=== PATIENT | male | born 1965 | race Caucasian/White ===

== ENCOUNTER 2023-12-04 14:25 | Inpatient (IN) | payer OTHER ==
[~2023-12-04] VITALS: Ht 170.2 cm; Wt 84.9 kg
[2023-12-04] MEDS: IV NORMAL SALINE 1000 ML BAG IV ONE (14:38)
[2023-12-04 14:43] LABS: BASOPHILS % (AUTO) 0.3 % (0.0-2.0); EOSINOPHILS % (AUTO) 0.1 % (0.0-7.0); HEMATOCRIT 27.6 % (36.7-47.1); HEMOGLOBIN 9.4 g/dL (12.5-16.3); MEAN CORPUSCULAR HGB CONC 34 g/dL (32.5-36.3); MEAN CORPUSCULAR VOLUME 113.7 fL (73.0-96.2); MONOCYTES # (AUTO) 0.5 K/uL (0.1-1.30); MONOCYTES % (AUTO) 8.9 % (0.0-11.0); NEUTROPHILS % (AUTO) 72.7 % (38.5-71.5); PLATELET COUNT (AUTO) 157 K/uL (152-348); RED CELL DISTRIBUTION WIDTH 15.8 % (12.1-16.2); WHITE BLOOD COUNT (AUTO) 5.5 K/uL (3.6-10.2)
[2023-12-04 14:44] LABS: DIFFERENTIAL COMMENT 1; RED BLOOD CELL COUNT(AUTO) 2.42 MIL/uL (4.06-5.63)
[2023-12-04 14:58] LABS: ETHANOL < 3 MG/DL (0-10)
[2023-12-04 15:00] LABS: ALANINE AMINOTRANSFERASE 83 U/L (16-63); ALBUMIN 3.3 g/dL (3.4-5.0); ALKALINE PHOSPHATASE 79 U/L (50-136); ASPARTATE AMINOTRANSFERASE 94 U/L (15-37); BILIRUBIN,DIRECT 1.3 mg/dL (0.0-0.2); BILIRUBIN,TOTAL 2.5 mg/dL (0.2-1.0); CALCIUM 8.1 mg/dL (8.5-10.1); CARBON DIOXIDE 21 mmol/L (21-32); CHLORIDE 99 mmol/L (98-107); CREATININE 2.1 mg/dL (0.6-1.3); GLUCOSE 101 mg/dL (74-106); SODIUM SERUM 141 mmol/L (136-145); TOTAL PROTEIN, SERUM 6.5 g/dL (6.4-8.2); UREA NITROGEN, BLOOD 38 mg/dL (7-18)
[2023-12-04 15:02] LABS: POTASSIUM 2.7 mmol/L (3.5-5.1)
[2023-12-04 15:03] LABS: ACETAMINOPHEN < 10.0 ug/mL (10-30)
[2023-12-04] MEDS ORDERED: LORAZEPAM 2 MG/1 ML VIAL ONE (15:14)
[2023-12-04] MEDS: LORAZEPAM 2 MG/1 ML VIAL IM ONE (15:26)
[2023-12-04] MEDS: POTASSIUM CHLORIDE 20 MEQ TAB.PRT.SR PO ONE (16:46)
[2023-12-04] MEDS ORDERED: CYANOCOBALAMIN 1000 MCG/ML VIAL IM SCH (17:30)
[2023-12-04] MEDS ORDERED: THIAMINE HCL INJ 100 MG in IV DEXTROSE 5% 50 ML IV SCH (17:30)
[2023-12-04] MEDS ORDERED: ONDANSETRON 4 MG/2 ML VIAL IV PRN (17:30)
[2023-12-04 17:37] LABS: PHOSPHOROUS 3.4 mg/dL (2.5-4.9)
[2023-12-04] MEDS ORDERED: MAGNESIUM SULFATE/D5W 200 ML ONE (17:43)
[2023-12-04] MEDS: MAGNESIUM SULFATE/D5W 100 ML IV SCH (17:43)
[2023-12-04] MEDS: LORAZEPAM 2 MG/1 ML VIAL IV PRN (18:14)
[2023-12-04] MEDS ORDERED: LIDOCAINE 2% (GLYDO= UROJET) 10 ML JELLY MM ONE (19:25)
[2023-12-04] MEDS: LIDOCAINE 2% (GLYDO= UROJET) 10 ML JELLY MM ONE (19:38)
[2023-12-04 19:46] LABS: *BLOOD, URINE NEGATIVE (NEGATIVE); *CLARITY,URINE CLEAR (CLEAR); *COLOR,URINE YELLOW (YELLOW); *KETONES,URINE 1+ (NEGATIVE); *PROTEIN,URINE NEGATIVE (NEGATIVE); LEUKOCYTE ESTERASE ,URINE NEGATIVE (NEGATIVE); NITRITE, URINE NEGATIVE (NEGATIVE); UGLUCOSE NEGATIVE (NEGATIVE)
[2023-12-04 19:49] LABS: *BILIRUBIN,URIN 1+ (NEGATIVE)
[2023-12-04 19:50] LABS: RBC,URINE 0-3 /HPF (0-3); WBC,URINE 0-3 /HPF (0-3)
[2023-12-04 19:59] LABS: *AMPHETAMINE, URINE NEGATIVE (NEGATIVE); *BARBITURATE, URINE NEGATIVE (NEGATIVE); *BENZODIAZEPINE, URINE NEGATIVE (NEGATIVE); *CANNABINOID, URINE NEGATIVE (NEGATIVE); *COCCAINE, URINE NEGATIVE (NEGATIVE); *OPIATE, URINE NEGATIVE (NEGATIVE); *PHENCYCLIDINE SCREEN,URINE NEGATIVE (NEGATIVE); FENTANYL, URINE NEGATIVE (NEGATIVE)
[2023-12-04] MEDS ORDERED: THIAMINE HCL INJ 100 MG in IV DEXTROSE 5% 100 ML IV SCH (20:00)
[2023-12-04] MEDS ORDERED: FOLIC ACID 1 MG in IV DEXTROSE 5% 50 ML IV SCH (21:00)
[2023-12-04] MEDS ORDERED: THIAMINE HCL 100 MG TABLET ONE (21:50)
[2023-12-04] MEDS ORDERED: FOLIC ACID 1 MG TABLET ONE (21:50)
[2023-12-04] MEDS: IV D5 1/2 NS 1000 ML 1,000 ML IV PRN (21:54)
[2023-12-04 22:00] VITALS: BP 159/73; TEMP 98.4; O2SAT 93
[2023-12-04] MEDS ORDERED: FOLIC ACID 5 MG/ML VIAL IV ONE (22:02)
[2023-12-04] MEDS ORDERED: THIAMINE HCL 200 MG/2 ML VIAL ONE (22:03)
[2023-12-04] MEDS: THIAMINE HCL INJ 100 MG in IV DEXTROSE 5% 100 ML IV SCH (22:25)
[2023-12-04] MEDS: LORAZEPAM 2 MG/1 ML VIAL IV ONE (22:45)
[2023-12-05 04:00] VITALS: BP 156/60; TEMP 96.9; O2SAT 98
[2023-12-05 07:30] LABS: BASOPHILS # (AUTO) 0.1 K/UL (0.0-0.2); EOSINOPHILS # (AUTO) 0.1 K/uL (0.0-0.7); EOSINOPHILS % (AUTO) 1.6 % (0.0-7.0); HEMATOCRIT 28.7 % (36.7-47.1); LYMPHOCYTES # (AUTO) 1.9 K/uL (0.8-4.8); LYMPHOCYTES % (AUTO) 28.1 % (20.5-51.5); MEAN CORPUSCULAR HEMOGLOBIN 39.9 uug (23.8-33.4); MEAN CORPUSCULAR HGB CONC 35 g/dL (32.5-36.3); MEAN CORPUSCULAR VOLUME 114.4 fL (73.0-96.2); MONOCYTES # (AUTO) 0.8 K/uL (0.1-1.30); MONOCYTES % (AUTO) 11.5 % (0.0-11.0); NEUTROPHILS # (AUTO) 3.9 K/uL (1.8-8.9); NEUTROPHILS % (AUTO) 57.8 % (38.5-71.5); PLATELET COUNT (AUTO) 201 K/uL (152-348); RED BLOOD CELL COUNT(AUTO) 2.51 MIL/uL (4.06-5.63); RED CELL DISTRIBUTION WIDTH 15.8 % (12.1-16.2); WHITE BLOOD COUNT (AUTO) 6.7 K/uL (3.6-10.2)
[2023-12-05 07:39] LABS: DIFFERENTIAL COMMENT 1
[2023-12-05 07:48] LABS: CALCIUM 8.4 mg/dL (8.5-10.1); CREATININE 1.6 mg/dL (0.6-1.3); MAGNESIUM 1.4 mg/dL (1.8-2.4); PHOSPHOROUS 2.1 mg/dL (2.5-4.9); POTASSIUM 3.2 mmol/L (3.5-5.1)
[2023-12-05] MEDS: CYANOCOBALAMIN 1000 MCG/ML VIAL IM SCH (08:24)
[2023-12-05] MEDS: PANTOPRAZOLE SODIUM 40 MG VIAL IV SCH (08:24)
[2023-12-05] MEDS: MULTIVITAMINS,THERAPEUTIC TABLET PO SCH (08:25)
[2023-12-05] MEDS ORDERED: ENOXAPARIN SODIUM 30 MG/0.3 ML DISP.SYRIN SQ SCH (09:00)
[2023-12-05] MEDS: FOLIC ACID 1 MG in IV DEXTROSE 5% 50 ML IV SCH (09:43)
[2023-12-05] MEDS: POTASSIUM CHLORIDE 20 MEQ TAB.PRT.SR PO ONE (10:34)
[2023-12-05] MEDS: ENOXAPARIN SODIUM 40 MG/0.4 ML DISP.SYRIN SQ SCH (10:35)
[2023-12-05] MEDS: MAGNESIUM SULFATE/D5W 100 ML IV SCH (10:37)
[2023-12-05 11:09] VITALS: BP 133/82; TEMP 97.9; O2SAT 98
[2023-12-05] MEDS ORDERED: CLON0.5T4 PO (14:27)
[2023-12-05] MEDS ORDERED: IBUP-1955 PO (14:28)
[2023-12-05] MEDS ORDERED: LOSA100T31 PO (14:28)
[2023-12-05] MEDS ORDERED: DICL100G31 TP (14:31)
[2023-12-05] MEDS: NEUTRA PHOS PACKET PO ONE (15:53)
[2023-12-05 19:00] VITALS: BP 123/82; TEMP 98.2; O2SAT 93
[2023-12-05] MEDS ORDERED: FOLIC ACID 1 MG in IV DEXTROSE 5% 50 ML IV SCH (21:00)
[2023-12-05 23:46] VITALS: BP_SYST 108; BP_SYST 116; BP_DIAS 77; BP_DIAS 82; TEMP 97.8; O2SAT 95
[2023-12-06 04:00] VITALS: BP 140/78; TEMP 98.2; O2SAT 97
[2023-12-06 07:13] LABS: BASOPHILS # (AUTO) 0.1 K/UL (0.0-0.2); BASOPHILS % (AUTO) 1.1 % (0.0-2.0); EOSINOPHILS # (AUTO) 0.2 K/uL (0.0-0.7); EOSINOPHILS % (AUTO) 2.5 % (0.0-7.0); HEMATOCRIT 26.8 % (36.7-47.1); HEMOGLOBIN 9.3 g/dL (12.5-16.3); LYMPHOCYTES # (AUTO) 1.7 K/uL (0.8-4.8); LYMPHOCYTES % (AUTO) 27.8 % (20.5-51.5); MEAN CORPUSCULAR HEMOGLOBIN 39.4 uug (23.8-33.4); MEAN CORPUSCULAR HGB CONC 35 g/dL (32.5-36.3); MONOCYTES # (AUTO) 0.9 K/uL (0.1-1.30); NEUTROPHILS # (AUTO) 3.3 K/uL (1.8-8.9); NEUTROPHILS % (AUTO) 54.6 % (38.5-71.5); PLATELET COUNT (AUTO) 222 K/uL (152-348); WHITE BLOOD COUNT (AUTO) 6.1 K/uL (3.6-10.2)
[2023-12-06 07:19] LABS: DIFFERENTIAL COMMENT 1; RED BLOOD CELL COUNT(AUTO) 2.35 MIL/uL (4.06-5.63)
[2023-12-06 07:28] LABS: ALBUMIN 3.1 g/dL (3.4-5.0); BILIRUBIN,TOTAL 2.1 mg/dL (0.2-1.0); CALCIUM 8.1 mg/dL (8.5-10.1); CREATININE 1.3 mg/dL (0.6-1.3); MAGNESIUM 1.3 mg/dL (1.8-2.4); PHOSPHOROUS 2.9 mg/dL (2.5-4.9); POTASSIUM 3.1 mmol/L (3.5-5.1); TOTAL PROTEIN, SERUM 6.1 g/dL (6.4-8.2)
[2023-12-06 08:00] VITALS: BP 153/87; TEMP 97.5; O2SAT 95
[2023-12-06] MEDS: FOLIC ACID 1 MG TABLET PO SCH (08:37)
[2023-12-06] MEDS: THIAMINE HCL 100 MG TABLET PO SCH (08:38)
[2023-12-06] MEDS: PANTOPRAZOLE SODIUM 40 MG TABLET.DR PO SCH (08:50)
[2023-12-06] MEDS: POTASSIUM CHLORIDE 20 MEQ TAB.PRT.SR PO ONE (09:35)
[2023-12-06] MEDS: MAGNESIUM SULFATE/D5W 100 ML IV SCH (09:36)
[2023-12-06 12:04] VITALS: BP 113/60; TEMP 98.2; O2SAT 96
[2023-12-06 15:40] VITALS: BP 104/78; TEMP 97.6; O2SAT 96
[2023-12-06 19:50] VITALS: BP 113/70; TEMP 97.7; O2SAT 90
[2023-12-06] MEDS: ACETAMINOPHEN 325 MG TABLET PO PRN (23:58)
[2023-12-07] VITALS: BP 116/56; TEMP 97.8; O2SAT 98
[2023-12-07] MEDS: NITROGLYCERIN OINT 1 GM PACKET TP PRN (00:15)
[2023-12-07 04:55] VITALS: BP 111/60; TEMP 97.8; O2SAT 98
[2023-12-07 07:17] LABS: CREATININE 1.1 mg/dL (0.6-1.3); MAGNESIUM 1.6 mg/dL (1.8-2.4); POTASSIUM 3.2 mmol/L (3.5-5.1)
[2023-12-07 08:12] VITALS: BP 125/78; TEMP 98.3; O2SAT 99
[2023-12-07 09:45] VITALS: O2SAT 96
[2023-12-07] MEDS: MAGNESIUM SULFATE/D5W 100 ML IV SCH (10:26)
[2023-12-07 11:03] VITALS: BP 114/71; TEMP 98.5; O2SAT 99
[2023-12-07] MEDS: POTASSIUM CHLORIDE 20 MEQ TAB.PRT.SR PO SCH (11:27)
[2023-12-07] MEDS ORDERED: FOLI1TAB94 PO (12:41)
[2023-12-07] MEDS ORDERED: THIA100T13 PO (12:41)
[2023-12-07 15:22] VITALS: BP 114/71; TEMP 97.9; O2SAT 99
== END 2023-12-07 18:15 | disposition home or self-care (01) | DRG 469 ==
LOC: ER 14:25 → TELE3 21:24 → MEDSURG3 12-07 09:47
DX: N17.9 Acute kidney failure, unspecified (principal); F10.131 Alcohol abuse with withdrawal delirium; E51.2 Wernicke's encephalopathy; K70.9 Alcoholic liver disease, unspecified; Y90.0 Blood alcohol level of less than 20 mg/100 ml; E53.8 Deficiency of other specified B group vitamins; E87.6 Hypokalemia; R94.31 Abnormal electrocardiogram [ECG] [EKG]; D53.9 Nutritional anemia, unspecified; F41.9 Anxiety disorder, unspecified; D50.9 Iron deficiency anemia, unspecified; R45.1 Restlessness and agitation; R00.0 Tachycardia, unspecified
CPT/HCPCS: 36415; 70450; 71045; 76700; 82746; 83735; 84100; 85025; 93005; 98960; A4663; C1758; G0378; G0480; J1650; J2060; J2470; J3411; J3420; J3475; J3490; J7040